=== PATIENT | male | born 1995 | race Caucasian/White ===

== ENCOUNTER 2022-01-10 20:37 | Emergency (ER) | payer SELFPAY ==
[~2022-01-10] VITALS: Ht 175.3 cm; Wt 74.8 kg
[2022-01-10 20:45] VITALS: BP 139/100
--- NOTE | 2022-01-10 20:45 | NUR ---
TO BED VIA W/C
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
--- NOTE | 2022-01-10 21:20 | NUR ---
PT TAKEN TO RAD
[2022-01-10] MEDS ORDERED: IBUP-2218 PO (21:54)
--- NOTE | 2022-01-10 22:03 | NUR ---
Patient discharged with v/s stable. Written and verbal after care instructions given and explained. Patient alert, oriented and verbalized understanding of instructions. Wheel Chair Assisted with to car. All questions addressed prior to discharge. ID band removed. Patient advised to follow up with PMD. Rx of IBUPROFEN given. Patient educated on indication of medication including possible reaction and side effects. Opportunity to ask questions provided and answered.
== END 2022-01-10 22:03 | disposition home or self-care (01) ==
LOC: MED 20:37
DX: S89.92XA Unspecified injury of left lower leg, initial encounter (principal); W21.09XA Struck by other hit or thrown ball, initial encounter; Y93.89 Activity, other specified; Y92.89 Other specified places as the place of occurrence of the external cause; Y99.8 Other external cause status
CPT/HCPCS: 73562; 99283

== ENCOUNTER 2022-05-14 22:20 | Emergency (ER) | payer SELFPAY ==
[~2022-05-14] VITALS: Ht 175.3 cm; Wt 74.8 kg
[~2022-05-14 22:20] MED LIST: IBUP-2218 PO
[2022-05-14 22:21] VITALS: BP 158/103
--- NOTE | 2022-05-15 02:06 | NUR ---
Patient being evaluated by physician
--- NOTE | 2022-05-15 02:09 | NUR ---
PT TO CHAIR B, BEING EVALUATED BY DR HAN
--- NOTE | 2022-05-15 02:39 | NUR ---
Patient discharged with v/s stable. Written and verbal after care instructions given and explained. Patient verbalized understanding. Ambulatory with steady gait. All questions addressed prior to discharge. Advised to follow up with PMD.
== END 2022-05-15 02:39 | disposition home or self-care (01) ==
LOC: MED 22:20
DX: S63.602A Unspecified sprain of left thumb, initial encounter (principal); X58.XXXA Exposure to other specified factors, initial encounter; Y93.64 Activity, baseball; Y92.89 Other specified places as the place of occurrence of the external cause; Y99.8 Other external cause status
CPT/HCPCS: 73130; 99283